=== PATIENT | male | born 1965 | race Caucasian/White ===

== ENCOUNTER 2022-06-01 17:17 | Emergency (ER) | payer OTHER ==
[~2022-06-01] VITALS: Ht 154.9 cm; Wt 127.0 kg
--- NOTE | 2022-06-01 17:37 | NUR ---
Placed in room 08 . Placed on environmental monitoring technician, blood pressure machine and pulse oximeter. To gown for exam. Side rails up.
[2022-06-01 17:38] VITALS: BP_SYST 144
--- NOTE | 2022-06-01 17:38 | NUR ---
Patient BIB self, C/C SOB x 3 days, Hx COPD, DM, HTN, Covid vaccinated, denies any illness recently. Patient is AOx4 placed onto Nasal Cannula 2Liters per MD.
[2022-06-01] MEDS ORDERED: cefTRIAXone 1 GM IVPB PREMIX 50 ML IV ONE (17:45)
--- NOTE | 2022-06-01 17:49 | NUR ---
# 20 gauge angiocath placed to Right AC, #22 PIV placed to Right Hand. Use of asceptic technique. Opsite placed over site. Blood return noted. Blood for lab drawn from site. Flushed with 10 cc of normal saline. No evidence of infiltration noted. Patient tolerated well.
--- NOTE | 2022-06-01 17:50 | NUR ---
EKG done at bedside
--- NOTE | 2022-06-01 17:51 | NUR ---
Xray at bedside
--- NOTE | 2022-06-01 17:54 | NUR ---
Covid test sent to the lab
--- NOTE | 2022-06-01 18:08 | NUR ---
Lab at bedside
[2022-06-01 18:24] LABS: BASOPHILS # (AUTO) 0.1 K/uL (0.0-0.2); EOSINOPHILS # (AUTO) 0.2 K/uL (0.0-0.4); EOSINOPHILS % (AUTO) 4.2 % (0.0-4.0); HEMATOCRIT 51.6 % (36-54); MEAN CORPUSCULAR HEMOGLOBIN 30 pg (27-31); MEAN CORPUSCULAR HGB CONC 33 % (32-36); MEAN CORPUSCULAR VOLUME 91 fL (79.0-98.0); MONOCYTES # (AUTO) 0.5 K/uL (0.0-1.0); MONOCYTES % (AUTO) 8.7 % (1.7-9.3); NEUTROPHILS # (AUTO) 4.1 K/uL (1.8-7.7); NEUTROPHILS % (AUTO) 69.1 % (40.0-70.0); PLATELET COUNT (AUTO) 197 K/uL (130-430); RED BLOOD CELL COUNT(AUTO) 5.66 MIL/uL (4.2-6.2); RED CELL DISTRIBUTION WIDTH 18.5 % (9.0-15.0); WHITE BLOOD COUNT (AUTO) 5.9 K/uL (4.8-10.8)
--- NOTE | 2022-06-01 18:26 | NUR ---
FLU swab collected and sent to lab
[2022-06-01 18:40] LABS: ANION GAP 2 (5-15); CALCIUM 8.4 mg/dL (8.4-11.0); CHLORIDE 102 mmol/L (98-107); CREATININE 1.27 mg/dL (0.55-1.30); GLUCOSE 101 mg/dL (70-99); UREA NITROGEN, BLOOD 19 mg/dL (8-21)
[2022-06-01 18:47] LABS: ALANINE AMINOTRANSFERASE 24 U/L (12-78); ALBUMIN 3.2 g/dL (3.4-4.8); ASPARTATE AMINOTRANSFERASE 20 U/L (10-37); TOTAL BILIRUBIN 0.5 mg/dL (0.0-1.0)
--- NOTE | 2022-06-01 18:52 | NUR ---
Closing Note: Report given to incoming noc RN, all cares endorsed.
[2022-06-01 18:54] LABS: GFR AFRICAN AMERICAN 76 mL/min (>90)
--- NOTE | 2022-06-01 19:33 | NUR ---
PT AWAKE AND ALERT IN BED, A&O 4, AND FOLLOWING COMMANDS. VSS. PT O2 SAT 92% ON NC AT 2L. PT AMBULATED TO RESTROOM WITH ASSISTANCE AND SAFELY BACK IN BED. SAFETY PRECAUTIONS IN PLACE AND CONNECTED TO MONITOR.
--- NOTE | 2022-06-01 19:44 | NUR ---
PT STATES HE TAKES MULTIPLE MEDICATIONS BUT DOES NOT KNOW ANY OF THE NAMES. PT MOTHER STATES SHE WILL BE BRINGING LIST OF MEDICATIONS TOMORROW MORNING.
[2022-06-01 22:43] LABS: BILIRUBIN,URINE NEGATIVE (NEGATIVE); CLARITY/URINE CLEAR (CLEAR); COLOR,URINE YELLOW (YELLOW); GLUCOSE,URINE NEGATIVE (NEGATIVE); KETONES,URINE NEGATIVE (NEGATIVE); LEUKOCYTE ESTERASE ,URINE NEGATIVE (NEGATIVE); NITRITE, URINE NEGATIVE (NEGATIVE); PH,URINE 5.5 (5.0-8.0); PROTEIN URINE TRACE (NEGATIVE); UROBILINOGEN,URINE 0.2 (0.2-1.0)
[2022-06-01 22:44] LABS: BLOOD, URINE TRACE (NEGATIVE)
[2022-06-01 22:50] LABS: BACTERIA,URINE None Seen /HPF (None Seen); MUCUS,URINE None Seen /LPF (None Seen); RBC,URINE 0-3 /HPF (0-3); WBC,URINE NONE SEEN /HPF (0-3)
[2022-06-01] MEDS ORDERED: FUROSEMIDE 20 MG/2 ML VIAL IVP ONE (23:00)
--- NOTE | 2022-06-01 23:23 | NUR ---
PT GIVEN 2 TURKEY MD RAYRAY OKAYED.
--- NOTE | 2022-06-02 00:28 | NUR ---
Report called to [facility] given to Dian CH, charge nurse. All questions and concerns address at this point.
--- NOTE | 2022-06-02 00:28 | NUR ---
Spoke to charge nurse, Dian CH. Pt will be going to room 5002.
[2022-06-02 00:44] VITALS: BP_SYST 119
--- NOTE | 2022-06-02 00:44 | NUR ---
Patient to be transferred to [facility]. Is being transferred due to higher level of care. Receiving facility has accepting physician and available space. ER physician has signed transfer form. Patient or responsible libertarian has agreed to transfer and signed form. Patient belongings inventoried and will be sent with patient. Copy of nursing notes, lab reports, EKG, Physicians Orders and X-rays to be sent with patient. Report called to Dian CH at receiving facility. Receiving physician is Dr. Mumtaz Garcia. [facility] has been called for transfer. ETA is [id number].
== END 2022-06-02 00:44 | disposition short-term general hospital (02) ==
LOC: SED 17:17
DX: R53.1 Weakness (principal); R09.02 Hypoxemia; R53.83 Other fatigue; E11.9 Type 2 diabetes mellitus without complications; I10 Essential (primary) hypertension; Z79.899 Other long term (current) drug therapy; Z20.822 Contact with and (suspected) exposure to COVID-19
CPT/HCPCS: 99285; 96365; 71045; 96375; 87426; 80053; 81000; 82962; 83880; 85025; 85379; 87040; 87086; 84484; 36415; 93005; 83605; 87804 ×2; J0696; J1940